=== PATIENT | female | born 1980 | race Caucasian/White ===

== ENCOUNTER 2017-12-29 16:35 | Emergency (ER) | payer MEDICAID ==
[2017-12-29 16:56] VITALS: BP 118/81
--- NOTE | 2017-12-29 17:11 | EDM.PDOC ---
ED HPI GENERAL MEDICAL PROBLEM - General Chief Complaint: ENT Problem Stated Complaint: FLU Time Seen by Provider: 12/29/17 16:38 Source of Information: Reports: Patient, RN, RN Notes Reviewed History Limitations: Reports: No Limitations - History of Present Illness INITIAL COMMENTS - FREE TEXT/NARRATIVE: Patient presents to the ED at [facility] with multiple complaints. Patient states she has a dry, non-productive cough for the past couple days. She had a nose bleed yesterday. She felt like she has "a bunch of goop in the back of my throat." She complains of chills feeling hot/cold. Close family members have been sick with similar symptoms. She states she had a fever yesterday but does not remember what the results was. She states her lungs feel like they are burning with each cough. Patient smokes 1 pack of cigarettes per day. She does work in a local [employer] and is around second hand smoke as well. She is trying to stay well hydrated with good PO fluid intake. Onset Date: 12/28/17 - Related Data Allergies Allergy/AdvReac Type Severity Reaction Status Date / Time ampicillin Allergy Swelling Verified 12/29/17 16:57 ketorolac [From Toradol] Allergy Vomiting Verified 12/29/17 16:57 contrast dye Allergy Other Uncoded 12/29/17 16:57 Home Meds: Home Meds Ibuprofen 400 mg PO QID 12/29/17 [History] Lisinopril/Hydrochlorothiazide [Zestoretic 20-25 mg Tablet] 1 each PO DAILY 03/12 [History] Oseltamivir [Tamiflu] 1 cap PO BID 4 Days #8 cap 12/29/17 [Rx] QUEtiapine [SEROquel] 200 mg PO BEDTIME 12/29/17 [History] Past Medical History - Past Surgical History Other HEENT Surgeries/Procedures: teeth removed Social & Family History - Tobacco Use Smoking Status *Q: Current Every Day Smoker Years of Tobacco use: 20 Used Tobacco, but Quit: No Second Hand Smoke Exposure: Yes - Alcohol Use Days Per Week of Alcohol Use: 0 - Recreational Drug Use Recreational Drug Use: No Drug Use in Last 12 Months: Yes Recreational Drug Type: Reports: Methamphetamine ED ROS ENT - Review of Systems Review Of Systems: See Below Constitutional: Reports: Fever, Chills. Denies: Weakness HEENT: Reports: Nosebleed, Rhinitis. Denies: Ear Pain, Throat Pain Respiratory: Reports: Pleuritic Chest Pain, Cough. Denies: Shortness of Breath , Sputum Cardiovascular: Denies: Chest Pain, Palpitations GI/Abdominal: Denies: Abdominal Pain, Nausea, Vomiting Skin: Reports: No Symptoms Neurological: Reports: Dizziness ED EXAM, ENT - Physical Exam Exam: See Below Exam Limited By: No Limitations General Appearance: Alert, No Apparent Distress Eye Exam: Bilateral Eye: Normal Inspection, PERRL Ears: Normal External Exam, Normal Canal, Normal TMs Nose: Normal Inspection Mouth/Throat: Normal Inspection, Normal Oropharynx Neck: Supple Respiratory/Chest: No Respiratory Distress, Lungs Clear, Normal Breath Sounds Cardiovascular: Normal Peripheral Pulses, Regular Rate, Rhythm GI/Abdominal: Normal Bowel Sounds, Soft, Non-Tender Neurological: Alert, Oriented Skin: Warm, Dry, Intact, Normal Color, No Rash Course - Vital Signs Last Recorded V/S: Last Vital Signs Temp 35.9 C 12/29/17 16:40 Pulse 101 H 12/29/17 16:40 Resp 20 12/29/17 16:40 BP 118/81 12/29/17 16:40 Pulse Ox 99 12/29/17 16:40 - Orders/Labs/Meds Orders: Active Orders 24 hr Category Date Time Status INFLUENZA A+B AG SCREEN [RM] Stat Lab 12/29/17 17:11 Received Departure - Departure Time of Disposition: 17:51 Disposition: Home, Self-Care 01 Condition: Good Clinical Impression: Influenza A - Discharge Information Prescriptions: Oseltamivir [Tamiflu] 1 cap PO BID 4 Days #8 cap Instructions: Influenza, Adult Referrals: Cyrus Carver MD [Ordering Only Provider] - Forms: ED Department Discharge Additional Instructions: 1. Stay well hydrated and rest 2. COVER your cough 3. Wash hands frequently 4. Take medication for the full coarse, even if you are feeling better 5. May use Tylenol/Advil as needed for any discomfort 6. Try an over the counter cough syrup 7. See your Primary as symptoms warrant 8. Call with any questions/concerns - Problem List Review Problem List Initiated/Reviewed/Updated: Yes - My Orders Last 24 Hours: My Active Orders 12/29/17 17:11 INFLUENZA A+B AG SCREEN [RM] Stat - Assessment/Plan Last 24 Hours: My Active Orders 12/29/17 17:11 INFLUENZA A+B AG SCREEN [RM] Stat Plan: Lab results discussed with patient. Positive influenza discussed at length. Information given.
[2017-12-29] MEDS: Take Home: Oseltamivir 75 MG Cap, 2 Cap Pack PO ONE (18:04)
== END 2017-12-29 18:00 | disposition home or self-care (01) ==
LOC: VM.ED 16:35
DX: J10.1 Influenza due to other identified influenza virus with other respiratory manifestations (principal); F17.210 Nicotine dependence, cigarettes, uncomplicated; Z79.899 Other long term (current) drug therapy
CPT/HCPCS: 87804; 99283; A9270